=== PATIENT | female | born 1975 | race Caucasian/White ===

== ENCOUNTER → 2024-08-10 10:31 | Outpatient (REF) | payer OTHER, SELFPAY ==
[2024-08-12 06:25] LABS: Quantiferon Mitogen minus NIL 9.96 IU/mL; Quantiferon NIL 0.04 IU/mL; Quantiferon Plus TB1 minus NIL 0.03 IU/mL (<=0.34); Quantiferon Plus TB2 minus NIL 0.05 IU/mL (<=0.34); Quantiferon TB Gold Plus Negative (Negative)
== END ==
LOC: REG 10:31
PROVIDERS: ATTENDING PHYSICIAN Nurse Practitioner Family; FAMILY PHYSICIAN Family Medicine
DX: Z23 Encounter for immunization (principal)
CPT/HCPCS: 36415; 86480